=== PATIENT | female | born 1960 | race Caucasian/White ===

== ENCOUNTER 2017-10-16 05:30 | Day surgery (SDC) | payer OTHER ==
[~2017-10-16] VITALS: Ht 170.2 cm; Wt 83.9 kg
[~2017-10-16 05:30] MED LIST: ASPIR-LOW81 MG PO; ASPIRIN CHEWABL81 M1 PO; ATARAX,VISTARIL50 MG PO; DIFLUCAN150 MG PO; EPIPEN ADU0.3 MG/0.3 IM; HYDRALAZINE HCL25 MG PO; KENALOG,ARISTOC80 G1 TP; LIDOCAINE20 MG/1 M5 PO; LORTAB 5-500 T1 EACH PO; MYSOLINE250 M1 PO; MYSOLINE250 MG PO; PEPCID20 MG PO; PREDNISONE20 MG PO; PREDNISONE50 MG PO; PRILOSEC20 MG PO; PROAIR RESPICL90 MCG IH; PROMETHAZINE HC25 M1 PO; SILVADENE20 GM TP; SINEMET 25-11 TABLET PO; TRAMADOL HCL50 MG PO; ULTRAM50 MG PO; VALTREX1000 MG PO; VENTOLIN HFA18 GM IH; VICODIN 5-3001 EACH PO; VITAMIN B122500 MCG PO; VITAMIN D32000 UNI1 PO; ZANAFLEX2 MG PO; ZYRTEC10 M2 PO
[2017-10-16 06:11] VITALS: BP 117/68
[2017-10-16 14:55] VITALS: BP 119/60
[2017-10-16 19:35] VITALS: BP 109/59
[2017-10-16 23:25] VITALS: BP 112/60
[2017-10-17 03:35] VITALS: BP 95/52
[2017-10-17 06:01] LABS: HEMATOCRIT 37.1 % (36.0-46.0); HEMOGLOBIN 11.8 G/DL (11.9-15.5); MCH 28.3 PG (29.0-34.0); MCHC 31.8 G/DL (30.0-36.0); PLATELET COUNT 247 K/uL (156-360); RBC DIS.WIDTH-CV 12.4 % (11.8-14.6); RBC DIS.WIDTH-SD 40.3 % (39-53); RED BLOOD COUNT 4.17 M/uL (3.80-5.20); WHITE BLOOD COUNT 9.8 K/uL (4.1-10.2)
[2017-10-17 08:16] VITALS: BP 114/67
[2017-10-17 11:49] VITALS: BP 100/55
[2017-10-17] MEDS ORDERED: HYDROMORPHONE HC4 MG PO (13:49)
== END 2017-10-17 15:12 | disposition home or self-care (01) ==
LOC: SDC 05:30 → NUC 07:00 → 2EASTP 12:00 → 2SOUTH 12:00 → ENRESERV 12:28 → 2EASTP 14:30
PROVIDERS: Surgery
DX: C50.412 Malignant neoplasm of upper-outer quadrant of left female breast (principal); Z17.0 Estrogen receptor positive status [ER+]; K21.9 Gastro-esophageal reflux disease without esophagitis; I25.2 Old myocardial infarction; Z86.73 Personal history of transient ischemic attack (TIA), and cerebral infarction without residual deficits; Z88.6 Allergy status to analgesic agent; Z91.040 Latex allergy status; Z88.5 Allergy status to narcotic agent; Z88.0 Allergy status to penicillin; Z91.018 Allergy to other foods; Z79.82 Long term (current) use of aspirin; Z80.3 Family history of malignant neoplasm of breast; Z87.891 Personal history of nicotine dependence
CPT/HCPCS: 78195; 78999; 85027; A9541; G0378; J0131; J1100; J1170; J2250; J2270; J2405; J2710; J3010; J3480; J7643; Q0175; S0020